=== PATIENT | female | born 1985 | race Caucasian/White ===

== ENCOUNTER → 2022-08-18 23:07 | Emergency (ER) | payer BC ==
[~2022-08-18] VITALS: Ht 170.2 cm; Wt 74.5 kg
[2022-08-19 00:53] LABS: Basophils # (auto) 0.1 10 ^3/uL (0-0.2); Eosinophils # (auto) 0.1 10 ^3/uL (0-0.8); Hematocrit 37.7 % (36.0-46.0); Hemoglobin 12.7 g/dL (12.2-16.2); Lymphocytes # (auto) 2.1 10 ^3/uL (0.4-5.4); Lymphocytes % (auto) 31.4 % (10.0-50.0); Mean Corpuscular Hemoglobin 30.7 pg (28.0-32.0); Mean Corpuscular Hgb Conc. 33.6 g/dL (32.0-36.0); Mean Corpuscular Volume 91.4 fL (80.0-100.0); Monocytes # (auto) 0.4 10 ^3/uL (0-1.3); Monocytes % (auto) 6.3 % (0.0-12.0); Neutrophils # (auto) 3.9 10 ^3/uL (1.6-8.6); Neutrophils % (auto) 58.3 % (37.0-80.0); Nucleated Red Blood Cells % 0.1 %; Red Blood Cells 4.13 10^6/uL (4.0-5.20); Red Cell Distribution Width 14.2 % (11.8-14.3); White Blood Cell 6.6 10^3/uL (4.4-10.8)
[2022-08-19 00:57] LABS: Albumin 3.4 g/dL (3.4-5.0); BUN/Creatinine Ratio 23.1 (10.0-20.0); Calcium 8.3 mg/dL (8.5-10.1); Magnesium 1.9 mg/dL (1.6-2.6); Potassium 3.5 mmol/L (3.5-5.1)
[2022-08-19 01:00] LABS: Bilirubin, Total 0.4 mg/dL (0.2-1.0); Total Protein 6.3 g/dL (6.4-8.2)
[2022-08-19 01:20] LABS: Urine Bacteria FEW /hpf (None Seen); Urine Blood 3+ /uL (Negative); Urine Mucus FEW (None Seen); Urine Specific Gravity 1.026 (1.001-1.035); Urine WBC 3 /hpf (0 - 5)
[2022-08-19 01:33] LABS: Alcohol, Urine < 3.0 mg/dL (0-10); Amphetamine Screen, Urine NEGATIVE (NEGATIVE); Barbiturate Scree,Urine NEGATIVE (NEGATIVE); Benzodiazephine Screen, Urine NEGATIVE (NEGATIVE); Cannabinoid Screen, Urine NEGATIVE (NEGATIVE); Cocaine Screen, Urine NEGATIVE (NEGATIVE); Opiate Scree,Urine NEGATIVE (NEGATIVE); Phencyclidine Screen, Urine NEGATIVE (NEGATIVE)
[2022-08-19 04:59] VITALS: BP 93/64
== END | disposition home or self-care (01) ==
LOC: EEVIPCON 23:07 → ER 23:07
DX: R55 Syncope and collapse (principal)
CPT/HCPCS: 36415; 71045; 80053; 80307; 81001; 81025; 83605; 83735; 83880; 84484; 84702; 85025; 85379; 87040

== ENCOUNTER 2022-11-11 04:15 | Emergency (ER) | payer BC, OTHER ==
[~2022-11-11] VITALS: Ht 170.2 cm; Wt 72.7 kg
[2022-11-11 07:39] VITALS: BP 107/67; PULSE 68; RESP 18; TEMP 97.9; O2SAT 97
== END 2022-11-11 09:41 | disposition home or self-care (01) ==
LOC: ER 04:15 → EEVIPCON 04:15 → ER 09:38
DX: S20.01XA Contusion of right breast, initial encounter (principal); W22.8XXA Striking against or struck by other objects, initial encounter; Y93.89 Activity, other specified; Y92.89 Other specified places as the place of occurrence of the external cause; Y99.8 Other external cause status
CPT/HCPCS: 71250

== ENCOUNTER 2023-05-02 17:25 | Emergency (ER) | payer BC, OTHER ==
[~2023-05-02] VITALS: Ht 170.2 cm; Wt 75.5 kg
[~2023-05-02 17:25] MED LIST: AZIT-43 PO; BENZ100C97 PO; DEX4T PO; NITR-87 PO; PROM25TA10 PO
[2023-05-02 17:26] VITALS: PULSE 85; RESP 16; O2SAT 100
[2023-05-02 18:07] LABS: Basophils # (auto) 0.1 10 ^3/uL (0-0.2); Basophils % (auto) 0.9 % (0.0-2.0); Eosinophils # (auto) 0.1 10 ^3/uL (0-0.8); Eosinophils % (auto) 0.8 % (0.0-7.0); Hematocrit 39.2 % (36.0-46.0); Hemoglobin 13.2 g/dL (12.2-16.2); Lymphocytes # (auto) 2.9 10 ^3/uL (0.4-5.4); Lymphocytes % (auto) 30.2 % (10.0-50.0); Mean Corpuscular Hemoglobin 29.8 pg (28.0-32.0); Mean Corpuscular Hgb Conc. 33.7 g/dL (32.0-36.0); Mean Corpuscular Volume 88.4 fL (80.0-100.0); Monocytes # (auto) 0.8 10 ^3/uL (0-1.3); Neutrophils # (auto) 5.8 10 ^3/uL (1.6-8.6); Neutrophils % (auto) 60.1 % (37.0-80.0); Red Blood Cells 4.43 10^6/uL (4.0-5.20); Red Cell Distribution Width 14.1 % (11.8-14.3); White Blood Cell 9.7 10^3/uL (4.4-10.8)
[2023-05-02 19:30] VITALS: PULSE 78; RESP 18; O2SAT 97
[2023-05-02 20:45] LABS: Urine Bacteria NONE SEEN /hpf (None Seen); Urine Blood Negative /uL (Negative); Urine Clarity Clear (Clear); Urine Color Colorless (Yellow); Urine Protein, UAD Negative (Negative); Urine Urobilinogen Normal (Negative); Urine WBC <1 /hpf (0 - 5)
[2023-05-02 22:00] VITALS: BP 106/70; PULSE 78; RESP 14; TEMP 98.7; O2SAT 97
== END 2023-05-02 22:06 | disposition home or self-care (01) ==
LOC: EEVIPCON 17:25 → ER 17:25
DX: O20.0 Threatened abortion (principal); R10.2 Pelvic and perineal pain; O26.891 Other specified pregnancy related conditions, first trimester; R10.30 Lower abdominal pain, unspecified; F32.9 Major depressive disorder, single episode, unspecified; Z3A.01 Less than 8 weeks gestation of pregnancy; Z98.890 Other specified postprocedural states; Z79.899 Other long term (current) drug therapy
CPT/HCPCS: 36415; 76801; 81001; 84702; 85025

== ENCOUNTER 2023-07-26 19:50 | Emergency (ER) | payer BC ==
[~2023-07-26] VITALS: Ht 170.2 cm; Wt 80.0 kg
[2023-07-26 20:00] VITALS: TEMP 97.9
[2023-07-26 20:21] VITALS: PULSE 76; RESP 14; O2SAT 100
[2023-07-26] MEDS: LACTATED RINGER'S 1,000 ML IV ONE (20:49)
[2023-07-26 21:07] LABS: Basophils # (auto) 0 10 ^3/uL (0-0.2); Basophils % (auto) 0.4 % (0.0-2.0); Eosinophils # (auto) 0.1 10 ^3/uL (0-0.8); Eosinophils % (auto) 0.5 % (0.0-7.0); Hematocrit 39.1 % (36.0-46.0); Lymphocytes # (auto) 2.4 10 ^3/uL (0.4-5.4); Lymphocytes % (auto) 20.2 % (10.0-50.0); Mean Corpuscular Hemoglobin 29.4 pg (28.0-32.0); Mean Corpuscular Hgb Conc. 33.3 g/dL (32.0-36.0); Mean Corpuscular Volume 88.3 fL (80.0-100.0); Monocytes # (auto) 0.9 10 ^3/uL (0-1.3); Neutrophils # (auto) 8.3 10 ^3/uL (1.6-8.6); Neutrophils % (auto) 70.9 % (37.0-80.0); Nucleated Red Blood Cells % 0.1 %; Red Blood Cells 4.43 10^6/uL (4.0-5.20); Red Cell Distribution Width 13.2 % (11.8-14.3); White Blood Cell 11.7 10^3/uL (4.4-10.8)
[2023-07-26 21:29] LABS: Alanine Aminotransferase 44 U/L (7-40); Albumin 3.8 g/dL (3.2-4.8); Alkaline Phosphatase 52 U/L (46-116); Anion Gap 7 (5-15); Aspartate Aminotransferase 33 U/L (13-40); BUN/Creatinine Ratio 13.8 (10.0-20.0); Bilirubin, Total 0.3 mg/dL (0.2-1.0); Blood Urea Nitrogen 8 mg/dL (9-23); Calcium 9.1 mg/dL (8.5-10.1); Carbon Dioxide 25 mmol/L (20-30); Chloride 106 mmol/L (98-107); Glucose 83 mg/dL (74-106); Potassium 3.7 mmol/L (3.5-5.1); Sodium 138 mmol/L (136-145)
[2023-07-26 21:36] LABS: Urine Bacteria FEW /hpf (None Seen); Urine Blood Negative /uL (Negative); Urine Clarity Clear (Clear); Urine Color Light-Yellow (Yellow); Urine Mucus FEW (None Seen); Urine Protein, UAD Negative (Negative); Urine Specific Gravity 1.022 (1.001-1.035); Urine Urobilinogen Normal (Negative); Urine WBC <1 /hpf (0 - 5); Urine pH 6.5 (5.0-9.0)
[2023-07-26] MEDS ORDERED: CEPH500T PO (21:55)
[2023-07-26 22:00] VITALS: BP 91/56; PULSE 82; RESP 11; O2SAT 100
[2023-07-26] MEDS: CEPHALEXIN 250 MG CAP PO ONE (22:07)
== END 2023-07-26 22:09 | disposition home or self-care (01) ==
LOC: EEVIPCON 19:50 → ER 19:50 → EDBD 19:50 → ER 22:09
DX: O99.352 Diseases of the nervous system complicating pregnancy, second trimester (principal); R10.2 Pelvic and perineal pain; R55 Syncope and collapse; O26.892 Other specified pregnancy related conditions, second trimester; R82.71 Bacteriuria; Z79.899 Other long term (current) drug therapy; Z79.2 Long term (current) use of antibiotics; Z3A.20 20 weeks gestation of pregnancy
CPT/HCPCS: 36415; 76805; 80053; 81001; 83880; 84484; 84702; 85025; 93005; 96360; 96361; 99284; J7030